=== PATIENT | female | born 1960 | race Caucasian/White ===

== ENCOUNTER 2017-02-09 12:41 | Emergency (ER) | payer OTHER ==
--- NOTE | ~2017-02-09 | EKG ---
PATIENT: ALLISON CLEARY UNIT #: [id number] Ventricular Rate: 81 BPM Atrial Rate: 81 BPM P-R Interval: 130 ms QRS Duration: 88 ms Q-T Interval: 346 ms QTC Calculation(Bezet): 401 ms P [place]: 18 degrees Calculated R [place]: 38 degrees Calculated T [place]: 17 degrees Diagnosis Line: Normal sinus rhythm Diagnosis Line: Nonspecific T wave abnormality Diagnosis Line: Abnormal ECG Diagnosis Line: When compared with ECG of 11-NOV-2016 12:03, Diagnosis Line: Premature atrial complexes are no longer Present Diagnosis Line: Nonspecific T wave abnormality, worse in Inferior Diagnosis Line: leads Diagnosis Line: Confirmed by LOIS GELLER MD ([id number]) on 02/12/2017 Diagnosis Line: 10:50:44 PM INTERPRETING MD: YIMI CONRAD
--- NOTE | ~2017-02-09 | CR63 ---
[facility] A Service of [facility] RADIOLOGY TEXT RESULTS PATIENT: ALLISON CLEARY LOCATION: [facility] : 64 UNIT #: [id number] AGE: [address]: Merlyn Curtis SEX: F ORDER DR: [id number] [facility] [address] [place], [place] [address] [id number] E MR#: [id number] Acc #: [id number] NAME: ALLISON CLEARY : 1960 SEX: F STUDY DATE/TIME: 02/09/2017 11:55 UNIT: [facility] ROOM: STUDY DESCRIPTION: CR Chest 2 View Attending Physician: Merlyn Curtis P.A.-C. Ordering Physician: Ed David Carrasco M.D. Primary Care Physician: Deb Garcia M.D. MEDICAL IMAGING REPORT This report is preliminary unless electronic signature is present EXAM 2 view chest INDICATIONS Shortness of air. Cough and congestion. Fever. FINDINGS PA and lateral views of the chest compared to 11/11/2016. Heart and mediastinal contours are unchanged. 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 No new airspace opacities. IMPRESSION No acute cardiopulmonary findings. 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 Dictated by... Vincent Callejas M.D. THIS IS AN ELECTRONICALLY VERIFIED REPORT Vincent Callejas M.D. at 02/10/2017 10:43 AM DONNA/jermaine TD: 02/10/2017 04:43 JOB #: [id number] MEDICAL IMAGING REPORT Page 1 of 1 COPY
[2017-02-09 12:15] LABS: BASOPHIL# 0.1 X10e3 (0-0.3); EOSINOPHIL# 0.3 X10e3 (0-0.7); EOSINOPHIL% 4.5 % (0.0-7.0); HEMOGLOBIN 14.4 gm/dL (12.0-16.0); LYMPHOCYTE# 2.2 X10e3 (1.0-3.5); LYMPHOCYTE% 29.3 % (17.0-45.0); MEAN CELL VOLUME 91.5 FL (83-96); MEAN CORPUSCULAR HEMOGLOBIN 30.6 PG (28-34); MEAN CORPUSCULAR HGB CONC 33.5 g/dL (30-36); MONOCYTE# 0.5 X10e3 (0-1.0); MONOCYTE% 7.2 % (3.0-12.0); NEUTROPHIL# 4.3 X10e3 (1.5-7.1); PLATELET COUNT 181 X10e3 (140-420); RED CELL DISTRIBUTION WIDTH 13.6 % (11.0-15.5); WHITE BLOOD COUNT 7.4 X10e3 (4.0-10.5)
[2017-02-09 12:18] LABS: DIFF IND NO
[2017-02-09 12:24] LABS: POC - TROPONIN <0.05 ng/mL (<=0.05)
[2017-02-09 12:40] LABS: ALBUMIN SERUM 3.7 g/dL (3.5-5.0); ALKALINE PHOSPHATASE 120 U/L (32-92); ALT (SGPT) 18 U/L (10-40); AST (SGOT) 17 U/L (10-42); BILIRUBIN,TOTAL 0.5 mg/dL (0.2-2.0); BLOOD UREA NITROGEN 10 mg/dL (9-23); BUN/CREATININE RATIO 14.28; CALCIUM SERUM 9.1 mg/dL (8.4-10.2); CARBON DIOXIDE 25 mmol/L (22-31); CHLORIDE 105 mmol/L (100-111); CREATININE SERUM 0.7 mg/dL (0.6-1.4); GLOM FILT RATE Estimated 98.2 mL/min (>60); GLUCOSE FASTING 152 mg/dL (70-110); POTASSIUM 3.9 mmol/L (3.5-5.1); SODIUM 141 mmol/L (135-145)
[2017-02-09 12:41] LABS: BILIRUBIN, DIRECT <0.1 mg/dL (0.0-0.2); BILIRUBIN,INDIRECT 0.4 mg/dL (0.0-0.9)
[~2017-02-09 12:41] MED LIST: ACID CONTROL20 MG PO; ALBUTEROL 0.5ML INH; ALBUTEROL MININEB NEB; ALBUTEROL17 GM INH; ALPRAZOLAM PO; ALPRAZOLAM0.25 M1 PO; ALPRAZOLAM0.25 MG PO; ANTIFUNGAL30 GM TP; ASPIR-TRIN325 MG PO; ASPIRIN EC81 M1 PO; ASPIRIN ENTERI325 M1 DOB; ASPIRIN ENTERI325 M1 PO; ASPIRIN PO; ASPIRIN81 M2 PO; ATARAX PO; ATENOLOL PO; ATENOLOL25 MG PO; BAYER ASPIRIN325 M1 PO; BENTYL10 MG PO; BENZONATATE PO; CELEXA PO; CHANTIX PO; CIPRO PO; CLARITIN10 M2 PO; COMBIVENT14.7 GM INH; COREG PO; CORICIDIN HBP F1 TAB PO; DALIRESP500 MCG PO; DOXYCYCLINE HY100 M1 PO; DOXYCYCLINE PO; FLEXERIL10 MG PO; GLUCOPHAGE500 MG PO; HCTZ PO; HYDROXYZINE HCL25 M1 DOB; HYDROXYZINE HCL25 M1 PO; HYDROXYZINE PO; KEFLEX500 MG PO; LEVAQUIN PO; LIPITOR PO; LIPITOR20 MG PO; LIPITOR80 MG PO; LISINOPRIL PO; LISINOPRIL10 MG PO; LISINOPRIL5 MG PO; LORTAB 7.5-5001 TAB PO; MEDROL DOSEPAK4 MG PO; MEDROL4 MG/DOSE- PO; METFORMIN HCL500 M1 PO; METFORMIN PO; OMNICEF300 M1 PO; PAIN RELIEF325 MG PO; PANTOPRAZOLE PO; PANTOPRAZOLE SO40 MG PO; PATIENT'S PHARMACY; PEPCID AC20 M1 PO; PHENERGAN W/CO120 ML PO; PREDNISONE PO; PREDNISONE1 MG PO; PREDNISONE10 MG; PREDNISONE10 MG PO; PREDNISONE5 M1 PO; PRINIVIL10 MG PO; PRO-AIR INHALER INH; PROAIR HFA8.5 GM IH; PROAIR HFA8.5 GM INH; PROTONIX PO; ROBITUSSIN COU118 M3 PO; ROBITUSSIN COU118 M5 PO; SINGULAIR PO; SYMBICORT INH; SYMBICORT INHALER INH; SYMBICORT80 INH; TENORMIN25 MG PO; TUDORZA PRESS400 MCG IH; TYLENOL325 M1 PO; VENTOLIN HFA PO; VERAPAMIL ER120 M1 PO; VERAPAMIL ER120 MG PO; VICODIN 5/1 TAB 5/50 PO; VISTARIL PO; VITAMIN D50000 UNIT PO; VOLTAREN75 MG PO; WALGREENS PHARMACY; ZITHROMAX PO; ZITHROMAX1 G/PKT PO; ZITHROMAX500 MG PO; ZOFRAN ODT4 MG PO; ZOFRAN PO; [UNRECOGNIZED DRUG - OTHER] MM; [UNRECOGNIZED DRUG - OTHER] PO
== END 2017-02-09 12:59 | disposition home or self-care (01) ==
LOC: CFTX 12:41
PROVIDERS: Physician Assistant
DX: J20.9 Acute bronchitis, unspecified (principal); Z90.49 Acquired absence of other specified parts of digestive tract; K21.9 Gastro-esophageal reflux disease without esophagitis; F41.9 Anxiety disorder, unspecified; Z87.891 Personal history of nicotine dependence; Z90.12 Acquired absence of left breast and nipple; Z88.5 Allergy status to narcotic agent; Z88.2 Allergy status to sulfonamides; Z88.8 Allergy status to other drugs, medicaments and biological substances
CPT/HCPCS: 36415; 71020; 80048; 80076; 82553; 84484; 85025; 93005; 94640; 96374; 99284; J2930

== ENCOUNTER 2017-05-29 16:44 | Emergency (ER) | payer OTHER ==
--- NOTE | ~2017-05-29 | CR72 ---
[facility] of [facility] RADIOLOGY TEXT RESULTS PATIENT: ALLISON CLEARY LOCATION: [facility] : 64 UNIT #: [id number] AGE: [address]: Merlyn Curtis SEX: F ORDER DR: [id number] [facility] [address] [place], [place] [address] [id number] E MR#: [id number] Acc #: [id number] NAME: ALLISON CLEARY : 1960 SEX: F STUDY DATE/TIME: 05/29/2017 17:55 UNIT: [facility] ROOM: STUDY DESCRIPTION: CR Chest Single View Portable Attending Physician: Merlyn Curtis P.A.-C. Ordering Physician: Merlyn Curtis P.A.-C. Primary Care Physician: Deb Garcia M.D. MEDICAL IMAGING REPORT This report is preliminary unless electronic signature is present EXAM Portable chest, 05/29/2017 HISTORY 56-year-old female with chest pain and shortness of air beginning yesterday. COMPARISON Chest, 02/09/2017 FINDINGS Frontal chest demonstrates clear lungs. No pleural effusion or pneumothorax. Heart size and mediastinum are normal. Pulmonary vasculature normal. IMPRESSION No acute cardiopulmonary findings. Dictated by... Moses Myles M.D. THIS IS AN ELECTRONICALLY VERIFIED REPORT Moses Myles M.D. at 05/30/2017 3:57 PM DAVID/jayden TD: 05/30/2017 04:11 JOB #: [id number] MEDICAL IMAGING REPORT Page 1 of 1 COPY
--- NOTE | ~2017-05-29 | EKG ---
PATIENT: ALLISON CLEARY UNIT #: [id number] Ventricular Rate: 85 BPM Atrial Rate: 85 BPM P-R Interval: 134 ms QRS Duration: 78 ms Q-T Interval: 402 ms QTC Calculation(Bezet): 478 ms P [place]: 60 degrees Calculated R [place]: 33 degrees Calculated T [place]: 50 degrees Diagnosis Line: Normal sinus rhythm Diagnosis Line: Normal ECG Diagnosis Line: When compared with ECG of 09-FEB-2017 12:24, Diagnosis Line: Nonspecific T wave abnormality no longer evident Diagnosis Line: in Inferior leads Diagnosis Line: Nonspecific T wave abnormality no longer evident Diagnosis Line: in Lateral leads Diagnosis Line: QT has lengthened Diagnosis Line: Confirmed by NILE FITCH MD ([id number]) on Diagnosis Line: 05/31/2017 7:29:26 AM INTERPRETING MD: CONSTANTINE CONRAD
[2017-05-29 18:08] LABS: BASOPHIL# 0.1 X10e3 (0-0.3); BASOPHIL% 0.9 % (0-2.5); EOSINOPHIL# 0.3 X10e3 (0-0.7); EOSINOPHIL% 4.1 % (0.0-7.0); HEMATOCRIT 40.7 % (35.0-45.0); HEMOGLOBIN 13.6 gm/dL (12.0-16.0); LYMPHOCYTE# 2.6 X10e3 (1.0-3.5); LYMPHOCYTE% 33.3 % (17.0-45.0); MEAN CELL VOLUME 89.5 FL (83-96); MEAN CORPUSCULAR HEMOGLOBIN 29.9 PG (28-34); MEAN CORPUSCULAR HGB CONC 33.4 g/dL (30-36); MEAN PLATELET VOLUME 9.8 FL (6.5-11.5); MONOCYTE# 0.6 X10e3 (0-1.0); MONOCYTE% 7.5 % (3.0-12.0); NEUTROPHIL# 4.1 X10e3 (1.5-7.1); NEUTROPHIL% 54.2 % (40-75); PLATELET COUNT 164 X10e3 (140-420); RED BLOOD COUNT 4.55 X10e (3.90-5.30); RED CELL DISTRIBUTION WIDTH 13.7 % (11.0-15.5); WHITE BLOOD COUNT 7.7 X10e3 (4.0-10.5)
[2017-05-29 18:13] LABS: DIFF IND NO
[2017-05-29 18:20] LABS: INR 0.9; PARTIAL THROMBOPLASTIN TIME 23.2 SECONDS (23.5-31.3); PROTHROMBIN TIME (PATIENT) 10.3 SECONDS (10.0-11.7)
[2017-05-29 18:35] LABS: ALBUMIN SERUM 3.8 g/dL (3.5-5.0); BILIRUBIN, DIRECT 0.1 mg/dL (0.0-0.2); BILIRUBIN,INDIRECT 0.7 mg/dL (0.0-0.9); BILIRUBIN,TOTAL 0.8 mg/dL (0.2-2.0); CREATININE SERUM 0.8 mg/dL (0.6-1.4); GLOM FILT RATE Estimated 83.7 mL/min (>60); PROTEIN TOTAL SERUM 6.6 g/dL (6.0-8.3)
[2017-05-29 18:43] LABS: POC - CKMB 1.6 ng/mL (0.0-7.9); POC - TROPONIN <0.05 ng/mL (<=0.05)
[2017-05-29] MEDS ORDERED: ATARAX PO (18:51)
[2017-05-29] MEDS ORDERED: VERAPAMIL ER120 M1 PO (18:52)
[2017-05-29] MEDS ORDERED: PANTOPRAZOLE SO40 MG PO (18:52)
[2017-05-29] MEDS ORDERED: CLARITIN10 M3 PO (18:53)
[2017-05-29] MEDS ORDERED: ATORVASTATIN CA80 MG PO (18:53)
[2017-05-29] MEDS ORDERED: FLONASE ALLERG9.9 ML (18:55)
[2017-05-29] MEDS ORDERED: FLEXERIL10 MG PO (18:55)
[2017-05-29] MEDS ORDERED: ALPRAZOLAM (19:00)
[2017-05-29] MEDS ORDERED: SPIRIVA18 MCG INH (19:06)
[2017-05-29] MEDS ORDERED: SYMBICORT80 INH (19:06)
[2017-05-29 19:09] LABS: POC - CKMB 1.2 ng/mL (0.0-7.9); POC - TROPONIN <0.05 ng/mL (<=0.05)
== END 2017-05-29 21:36 | disposition home or self-care (01) ==
LOC: CED 16:44
PROVIDERS: Physician Assistant
DX: R07.89 Other chest pain (principal); E11.9 Type 2 diabetes mellitus without complications; J44.9 Chronic obstructive pulmonary disease, unspecified; K21.9 Gastro-esophageal reflux disease without esophagitis; Z88.5 Allergy status to narcotic agent; Z88.8 Allergy status to other drugs, medicaments and biological substances; Z98.890 Other specified postprocedural states
CPT/HCPCS: 36415; 71010; 80048; 80076; 82553; 83880; 84484; 85025; 85610; 85730; 93005; 96374; 99285; J2270; J2405